=== PATIENT | male | born 1970 | race Caucasian/White ===

== ENCOUNTER 2022-04-30 14:39 | Emergency (ER) | payer MEDICARE, MEDICAID ==
[~2022-04-30] VITALS: Ht 172.7 cm; Wt 77.0 kg
[~2022-04-30 14:39] MED LIST: RISPERDOL
[2022-04-30 14:54] VITALS: BP 114/85
[2022-04-30] MEDS ORDERED: IBUP-2028 MT (17:14)
[2022-04-30] MEDS ORDERED: AMOX-494 MT (17:14)
[2022-04-30] MEDS ORDERED: IBUPROFEN 400MG TABLET PO ONE (17:30)
== END 2022-04-30 17:44 | disposition home or self-care (01) ==
LOC: ER 14:39
DX: K08.89 Other specified disorders of teeth and supporting structures (principal)
CPT/HCPCS: 99283

== ENCOUNTER 2022-06-07 07:18 | Emergency (ER) | payer MEDICARE, MEDICAID ==
[~2022-06-07] VITALS: Ht 185.4 cm; Wt 74.0 kg
[~2022-06-07 07:18] MED LIST changes: +AMOX-494 MT; +IBUP-2028 MT
[2022-06-07 07:34] VITALS: BP 106/71
== END 2022-06-07 09:06 | disposition home or self-care (01) ==
LOC: ER 07:18
DX: K02.9 Dental caries, unspecified (principal); Z86.59 Personal history of other mental and behavioral disorders
CPT/HCPCS: 99281

== ENCOUNTER 2022-06-12 08:34 | Emergency (ER) | payer MEDICARE, MEDICAID ==
[~2022-06-12] VITALS: Ht 185.4 cm; Wt 77.0 kg
[2022-06-12 08:42] VITALS: BP 113/87
[2022-06-12] MEDS ORDERED: AMOX1TAB16 MT (09:26)
[2022-06-12] MEDS ORDERED: PERM60CR4 TP (09:30)
== END 2022-06-12 10:00 | disposition home or self-care (01) ==
LOC: ER 08:34
DX: K04.7 Periapical abscess without sinus (principal); R42 Dizziness and giddiness; K30 Functional dyspepsia; R94.31 Abnormal electrocardiogram [ECG] [EKG]
CPT/HCPCS: 93005; 99283

== ENCOUNTER 2022-07-16 08:21 | Emergency (ER) | payer MEDICARE, MEDICAID ==
[~2022-07-16] VITALS: Ht 185.4 cm; Wt 72.0 kg
[~2022-07-16 08:21] MED LIST changes: +AMOX1TAB16 MT; +PERM60CR4 TP
[2022-07-16 08:49] VITALS: BP 119/77
[2022-07-16] MEDS ORDERED: FLUORESCEIN SODIUM 1MG/STRIP RIGHTEYE ONE (10:45)
[2022-07-16] MEDS ORDERED: DIPH28.33 TP (12:39)
[2022-07-16] MEDS ORDERED: [UNRECOGNIZED DRUG - CODE] PO (12:40)
[2022-07-16] MEDS ORDERED: AMOX1TAB16 MT (12:57)
== END 2022-07-16 13:02 | disposition home or self-care (01) ==
LOC: ER 08:21
DX: K04.7 Periapical abscess without sinus (principal); J02.9 Acute pharyngitis, unspecified; Z79.899 Other long term (current) drug therapy; Z20.822 Contact with and (suspected) exposure to COVID-19
CPT/HCPCS: 87426; 87804; 99283; C9803

== ENCOUNTER 2023-04-03 08:50 | Emergency (ER) | payer MEDICARE, MEDICAID ==
[~2023-04-03] VITALS: Ht 188 cm; Wt 72.0 kg
[~2023-04-03 08:50] MED LIST changes: +DIPH28.33 TP; +[UNRECOGNIZED DRUG - CODE] PO
[2023-04-03 09:05] VITALS: BP 125/76; PULSE 72; RESP 18; TEMP 98.5; O2SAT 99
== END 2023-04-03 10:52 | disposition home or self-care (01) ==
LOC: ER 08:50
DX: Z00.00 Encounter for general adult medical examination without abnormal findings (principal); Z79.899 Other long term (current) drug therapy
CPT/HCPCS: 99281

== ENCOUNTER 2024-12-01 12:09 | Emergency (ER) | payer MEDICARE, MEDICAID ==
[~2024-12-01] VITALS: Ht 188 cm; Wt 73.0 kg
[2024-12-01 12:34] VITALS: TEMP 36.9; O2SAT 98
[2024-12-01 12:52] LABS: CLARITY URINE CLEAR (CLEAR); COLOR URINE YELLOW (YELLOW); GLUCOSE URINE NEGATIVE (NEGATIVE); KETONES URINE NEGATIVE (NEGATIVE); LEUKOCYTE ESTERASE URINE NEGATIVE (NEGATIVE); NITRITE URINE NEGATIVE (NEGATIVE); OCCULT BLOOD URINE NEGATIVE (NEGATIVE); PH URINE 5.5 (4.5-8.0); PROTEIN URINE NEGATIVE (NEGATIVE); SPECIFIC GRAVITY URINE 1.005 (1.005-1.030); UROBILINOGEN URINE 0.2 E.U./dL (0.2-1.0)
[2024-12-01] MEDS ORDERED: DIPH25CA83 MT (13:02)
[2024-12-01] MEDS: DEXAMETHASONE 4MG/ML 1ML VIAL IM ONE (13:09)
[2024-12-01 13:18] VITALS: BP 118/87; PULSE 66; RESP 16; O2SAT 100
== END 2024-12-01 13:24 | disposition home or self-care (01) ==
LOC: ER 12:09
DX: L29.9 Pruritus, unspecified (principal); Z79.899 Other long term (current) drug therapy
CPT/HCPCS: 99283; 81003; 87086; 96372; J1100

== ENCOUNTER 2025-02-10 20:06 | Emergency (ER) | payer MEDICARE, MEDICAID ==
[~2025-02-10] VITALS: Ht 185.4 cm; Wt 75.0 kg
[~2025-02-10 20:06] MED LIST changes: +DIPH25CA83 MT
[2025-02-10 20:27] VITALS: O2SAT 100
[2025-02-10] MEDS ORDERED: AZIT250T12 MT (21:02)
[2025-02-10] MEDS ORDERED: CLOT15CR27 TP (21:02)
[2025-02-10 21:15] VITALS: BP 121/79; PULSE 79; RESP 18; TEMP 37.2; O2SAT 100
[2025-02-10] MEDS ORDERED: AM250 MT (21:39)
== END 2025-02-10 21:44 | disposition home or self-care (01) ==
LOC: ER 20:06
DX: J00 Acute nasopharyngitis [common cold] (principal); E11.9 Type 2 diabetes mellitus without complications; Z79.899 Other long term (current) drug therapy
CPT/HCPCS: 99283

== ENCOUNTER 2025-03-21 02:43 | Emergency (ER) | payer MEDICARE, MEDICAID ==
[~2025-03-21] VITALS: Ht 185.4 cm; Wt 73.0 kg
[~2025-03-21 02:43] MED LIST changes: +AM250 MT; +CLOT15CR27 TP; +PERM60CR20 TP; -PERM60CR4 TP
[2025-03-21 02:54] VITALS: O2SAT 99
[2025-03-21 03:03] VITALS: BP 120/85; PULSE 105; RESP 16; TEMP 36.7; O2SAT 99
[2025-03-21] MEDS: DEXAMETHASONE 4MG TABLET PO ONE (03:52)
[2025-03-21] MEDS ORDERED: DEXAMETHASONE 4MG/ML 1ML VIAL IM ONE (04:00)
[2025-03-21] MEDS ORDERED: DIPH25CA83 MT (04:14)
[2025-03-21] MEDS ORDERED: DIPH103G TP (05:01)
== END 2025-03-21 05:37 | disposition home or self-care (01) ==
LOC: ER 02:43
DX: L29.89 Other pruritus (principal); E11.9 Type 2 diabetes mellitus without complications; Z79.52 Long term (current) use of systemic steroids
CPT/HCPCS: 99283; J8540

== ENCOUNTER 2025-03-29 00:22 | Emergency (ER) | payer MEDICARE, MEDICAID ==
[~2025-03-29] VITALS: Ht 185.4 cm; Wt 74.4 kg
[~2025-03-29 00:22] MED LIST changes: +DIPH103G TP
[2025-03-29 00:34] VITALS: O2SAT 98
[2025-03-29 04:20] LABS: CLARITY URINE CLEAR (CLEAR); COLOR URINE YELLOW (YELLOW); GLUCOSE URINE NEGATIVE (NEGATIVE); KETONES URINE NEGATIVE (NEGATIVE); LEUKOCYTE ESTERASE URINE NEGATIVE (NEGATIVE); NITRITE URINE NEGATIVE (NEGATIVE); OCCULT BLOOD URINE NEGATIVE (NEGATIVE); PH URINE 6.0 (4.5-8.0); PROTEIN URINE NEGATIVE (NEGATIVE); SPECIFIC GRAVITY URINE 1.006 (1.005-1.030); UROBILINOGEN URINE 0.2 E.U./dL (0.2-1.0)
[2025-03-29] MEDS ORDERED: CETI5TAB5 MT (04:29)
[2025-03-29] MEDS ORDERED: DIPH28.33 TP (04:29)
[2025-03-29 04:46] VITALS: BP 130/82; PULSE 69; RESP 15; TEMP 36.5; O2SAT 97
== END 2025-03-29 04:46 | disposition home or self-care (01) ==
LOC: ER 00:22
DX: L29.89 Other pruritus (principal); R35.0 Frequency of micturition; E11.9 Type 2 diabetes mellitus without complications
CPT/HCPCS: 81003; 99283

== ENCOUNTER 2025-04-24 14:40 | Emergency (ER) | payer MEDICARE, MEDICAID ==
[~2025-04-24] VITALS: Ht 185.4 cm; Wt 74.1 kg
[~2025-04-24 14:40] MED LIST changes: +CETI5TAB5 MT
[2025-04-24 14:41] VITALS: PULSE 95; RESP 16; O2SAT 100
[2025-04-24 14:53] VITALS: BP 112/77; TEMP 36.8; O2SAT 99
[2025-04-24] MEDS ORDERED: DIPH25CA83 MT (16:11)
[2025-04-24] MEDS ORDERED: DIPH28.33 TP (16:11)
== END 2025-04-24 16:44 | disposition home or self-care (01) ==
LOC: ER 14:56
DX: L23.9 Allergic contact dermatitis, unspecified cause (principal); E11.9 Type 2 diabetes mellitus without complications; Z79.899 Other long term (current) drug therapy
CPT/HCPCS: 99282

== ENCOUNTER 2025-06-07 19:07 | Emergency (ER) | payer MEDICARE, MEDICAID ==
[~2025-06-07] VITALS: Ht 185.4 cm; Wt 73.4 kg
[2025-06-07 20:20] VITALS: O2SAT 100
[2025-06-07 20:37] LABS: CLARITY URINE CLEAR (CLEAR); COLOR URINE YELLOW (YELLOW); GLUCOSE URINE NEGATIVE (NEGATIVE); KETONES URINE TRACE (NEGATIVE); LEUKOCYTE ESTERASE URINE NEGATIVE (NEGATIVE); NITRITE URINE NEGATIVE (NEGATIVE); OCCULT BLOOD URINE NEGATIVE (NEGATIVE); PH URINE 5.0 (4.5-8.0); PROTEIN URINE NEGATIVE (NEGATIVE); SPECIFIC GRAVITY URINE 1.026 (1.005-1.030); UROBILINOGEN URINE 1.0 E.U./dL (0.2-1.0)
[2025-06-07 20:47] LABS: BASOPHILS % 0.6 % (0.0-2.0); EOSINOPHILS % 4.2 % (0.0-5.0); HEMATOCRIT. 43.3 % (42.0-52.0); HEMOGLOBIN. 13.9 g/dL (14.0-18.0); LYMPHOCYTES % 28.0 % (20.0-50.0); MEAN PLATELET VOLUME 9.6 fl (7.4-10.4); MONOCYTES % 6.9 % (2.0-8.0); NEUTROPHILS % 60.3 % (40.0-76.0); PLATELET 186 x1000/uL (130-400); RED BLOOD CELL COUNT 5.11 mill/uL (4.7-6.1); RED CELL DISTRIBUTION WIDTH 13.0 % (11.6-14.6)
[2025-06-07 21:02] LABS: CREATININE 1.2 mg/dL (0.6-1.3); UREA NITROGEN BLOOD 11 mg/dL (9-23)
[2025-06-07 21:04] LABS: ASPARTATE AMINOTRANSFERASE 27 IU/L (<34)
[2025-06-07 21:05] LABS: BILIRUBIN TOTAL 0.6 mg/dL (0.1-1.0); PROTEIN TOTAL 8.0 g/dL (6.0-8.3)
[2025-06-07] MEDS ORDERED: CETI-89 MT (21:22)
[2025-06-07] MEDS ORDERED: P20 MT (21:22)
[2025-06-07 21:37] VITALS: BP 127/91; PULSE 74; RESP 20; TEMP 36.7; O2SAT 100
== END 2025-06-07 21:39 | disposition home or self-care (01) ==
LOC: ER 19:07
DX: L29.9 Pruritus, unspecified (principal); R35.0 Frequency of micturition; Z79.899 Other long term (current) drug therapy; Z98.890 Other specified postprocedural states
CPT/HCPCS: 36415; 80053; 81003; 85025; 99283

== ENCOUNTER 2025-06-14 00:44 | Emergency (ER) | payer MEDICARE, MEDICAID ==
[~2025-06-14] VITALS: Ht 185.4 cm; Wt 71.2 kg
[~2025-06-14 00:44] MED LIST changes: +CETI-89 MT; +P20 MT
[2025-06-14 01:23] VITALS: O2SAT 100
[2025-06-14] MEDS: DIPHENHYDRAMINE 12.5MG/5ML UDC PO ONE (01:30)
[2025-06-14 02:20] VITALS: BP 121/71; PULSE 75; RESP 20; TEMP 37; O2SAT 100
[2025-06-14] MEDS ORDERED: HYDR28CR97 TP (02:20)
== END 2025-06-14 02:35 | disposition home or self-care (01) ==
LOC: ER 00:44
DX: L29.9 Pruritus, unspecified (principal); Z79.899 Other long term (current) drug therapy
CPT/HCPCS: 99282